=== PATIENT | male | born 1965 | race Caucasian/White ===

== ENCOUNTER → 2020-06-13 | Outpatient (CLI) | payer OTHER ==
[~2020-06-13] MED LIST: ESCI10
[2020-06-13 12:20] LABS: BASOPHILS ABSOLUTE AUTO 0.09 K/mm3 (0.00-0.23); BASOPHILS PERCENT AUTO 1 % (0-2); EOSINOPHILS ABSOLUTE AUTO 0.36 K/mm3 (0.00-0.68); EOSINOPHILS PERCENT AUTO 4 % (0-6); Hemoglobin 15.2 g/dL (13.5-17.5); IMMATURE GRAN ABSOLUTE AUTO 0.04 K/mm3 (0.00-0.10); IMMATURE GRAN PERCENT AUTO 1 % (0-1); LYMPHOCYTES PERCENT AUTO 32 % (21-46); MONOCYTES ABSOLUTE AUTO 0.66 K/mm3 (0.16-1.47); MONOCYTES PERCENT AUTO 8 % (4-13); Mean Corpuscular HGB 30.5 pg (26.0-34.0); Mean Corpuscular HGB Conc 33.8 g/dL (31.5-36.5); Mean Corpuscular Volume 90 fL (80-100); Mean Platelet Volume 9.5 fL (9.1-12.4); NEUTROPHILS ABSOLUTE AUTO 4.87 K/mm3 (1.96-9.15); NEUTROPHILS PERCENT AUTO 55 % (41-73); Platelet Count 341 K/mm3 (150-400); RDW Coefficient Variation 14.6 % (11.7-14.2); RDW Standard Deviation 47.7 fL (35.1-46.3); Red Blood Cell Count 4.99 M/mm3 (4.30-5.90); White Blood Cell Count 8.82 K/mm3 (4.00-11.30)
[2020-06-13 12:23] LABS: Anion Gap 6 mmol/L (6-16); Blood Urea Nitrogen 16 mg/dL (8-24); Bun/Creatinine Ratio 18.6 (12.0-20.0); CO2, Blood 31 mmol/L (21-32); Calcium, Blood 9.4 mg/dL (8.5-10.1); Chloride, Blood 104 mmol/L (98-108); Creatinine, Blood 0.86 mg/dL (0.60-1.20); Glomerular Filtration Rate >60 (60-); Glucose, Blood 90 mg/dL (70-99); Potassium, Blood 4.6 mmol/L (3.5-5.5); Sodium, Blood 141 mmol/L (136-145)
== END | disposition home or self-care (01) ==
LOC: LAB EV 12:07 → LAB SHORT 12:07
PROVIDERS: Chiropractor
DX: H53.2 Diplopia (principal)
CPT/HCPCS: 80048; 85025; 85651

== ENCOUNTER 2021-08-21 09:32 | Day surgery (SDC) | payer OTHER ==
[~2021-08-21] VITALS: Ht 172.7 cm; Wt 57.6 kg
== END 2021-08-21 11:35 | disposition home or self-care (01) ==
LOC: ORSCSDS 09:32
PROVIDERS: Internal Medicine Gastroenterology
PROC: 0DJD8ZZ Inspection of Lower Intestinal Tract, Via Natural or Artificial Opening Endoscopic (ICD-10-PCS; principal; 2021-08-21 10:45)
DX: Z12.11 Encounter for screening for malignant neoplasm of colon (principal); Z86.010 Personal history of colon polyps; E78.5 Hyperlipidemia, unspecified; Z87.891 Personal history of nicotine dependence; Z79.899 Other long term (current) drug therapy
CPT/HCPCS: J2250; J2310; J3010; J7120

== ENCOUNTER → 2022-06-30 | Outpatient (CLI) | payer OTHER | END | disposition home or self-care (01) | LOC: LAB SHORT 14:07 → LAB 14:07 → LAB FUT 06-25 12:15 → EDSTATUS 06-25 12:15 | PROVIDERS: Internal Medicine | DX: E85.9 Amyloidosis, unspecified (principal) | CPT/HCPCS: 81050 ==

== ENCOUNTER 2024-02-12 07:52 | Day surgery (SDC) | payer OTHER ==
[~2024-02-12] VITALS: Ht 172.7 cm; Wt 55.4 kg
[~2024-02-12 07:52] MED LIST changes: +CELEXA40 M9 PO; +CIPR500 PO; +DOCU100 PO; +Lactated Ringer's 1,000 ML IV ONE; +MELO7.5 PO; +METR500 PO; +PROBIOTIC1 EA13 PO; +ROSUVASTATIN CA10 MG PO; +propofoL 50 ML IV ONE
[2024-02-12] MEDS ORDERED: FentaNYL Citrate 50 MCG/ML 2 ML Injection ONE (10:07)
[2024-02-12] MEDS ORDERED: Midazolam HCL 1 MG/ML 5MLVIAL ONE (10:08)
[2024-02-12] MEDS ORDERED: Lactated Ringer's 1,000 ML IV ONE ×2 (10:14)
--- NOTE | 2024-02-12 11:25 | NUR ---
02/12/24 1124 Geno Morrison LATE ENTRY PT.CAME IN WITH PAIN "BEHIND MY TAILBONE INSIDE." PT. RATING A "8-9". PT. VERBALIZES THIS IS WHY HE IS HERE. IS AWARE OF HIS PAIN.
--- NOTE | 2024-02-12 11:28 | NUR ---
02/12/24 1128 Geno Morrison PT. VERBALIZES STILL HAVING PAIN IN HIS TAILBONE AREA, SAME PREOP & STILL RATING "8-9". PER DR. PAIGE PT. NEEDS TO GO TO HIS PCP & TALK ABOUT MAYBE SOME "NERVE PAIN." BUT NOTHING WAS FOUND ON HIS COLONOSCOPY.
[2024-02-12 11:31] VITALS: BP 116/76
== END 2024-02-12 11:05 | disposition home or self-care (01) ==
LOC: ORSCSDS 07:52
PROVIDERS: Internal Medicine Gastroenterology
PROC: 0DJD8ZZ Inspection of Lower Intestinal Tract, Via Natural or Artificial Opening Endoscopic (ICD-10-PCS; principal; 2024-02-12 09:15)
DX: K62.5 Hemorrhage of anus and rectum (principal); R93.3 Abnormal findings on diagnostic imaging of other parts of digestive tract; K59.04 Chronic idiopathic constipation; E78.5 Hyperlipidemia, unspecified; R10.30 Lower abdominal pain, unspecified; Z87.891 Personal history of nicotine dependence; Z79.899 Other long term (current) drug therapy
CPT/HCPCS: J2250; J2704; J3010; J7120